=== PATIENT | female | born 1975 | race Caucasian/White ===

== ENCOUNTER → 2017-07-24 14:40 | Outpatient (CLI) | payer BC, SELFPAY ==
--- NOTE | 2017-07-24 14:47 | US_ITS ---
US breast RT complete COMPARISON: 02/23/2017 INDICATION: Follow-up abnormal mammogram and ultrasound ORDERING PHYSICIAN: Germain Holman MD PATIENT AGE: 42 years TECHNIQUE: Standard images performed along with axilla FINDINGS: A complex cyst is present at the 11:00 region measuring 5 x 3 mm.. At 10:00 there is a 5 mm cyst along the chest wall anteriorly. Small nodes are present in the axilla. An 8 x 3 mm hypoechoic area is noted at 9:00 unchanged. No suspicious lesions evident. IMPRESSION: Benign findings, no evidence of malignancy BI-RADS Category: 2 Benign Finding(s) RECOMMENDED FOLLOW-UP: 1YR - 1 YEAR FOLLOW-UP (A letter has been sent to the patient regarding results of the study.)
--- NOTE | 2017-07-24 14:47 | MM_ITS ---
. MM Dig screening mamm BI w/CAD CAD Screening ORDERING PHYSICIAN : Germain Holman MD PATIENT AGE: 41 years GENDER: Female COMPARISON: Previous mammograms: December 2014, June 2016, right mammogram July 2016. February 2017 INDICATION no hormones. No new complaints noncontributory family history: TECHNIQUE: Standard CC and MLO images were obtained. R2 CAD reviewed. FINDINGS: On mild asymmetry again observed with fibroglandular elements most pronounced towards upper-outer quadrant both right and left breast. These asymmetric inhomogeneous breast patterns appear fairly stable compared back to the previous studies from 2014 & in 2017. Self breast examination would be encouraged if any palpable areas should develop ultrasound may be useful to further evaluate such Several RIGHT BREAST:The fibroglandular elements are most evident towards upper outer quadrant right breast but appears stable with no significant new findings. LEFT BREAST: The area of dense glandular elements at the upper outer quadrant left breast appears similar to thousand 15 with no significant change or progression. IMPRESSION: No significant new areas of concern Stable bilateral mammogram.. Stable areas densefibroglandular tissue upper-outer quadrant both breast again noted. Overall appear Stable Bilateral follow-up one year adequate BI-RADS Category: 2 Benign Finding(s) RECOMMENDED FOLLOW-UP: 1YR - 1 YEAR FOLLOW-UP (A letter has been sent to the patient regarding results of the study.)
== END ==
PROVIDERS: Family Provider Family Medicine; PCP Nurse Practitioner Obstetrics & Gynecology; Visit Provider Nurse Practitioner Obstetrics & Gynecology
DX: Z12.31 Encounter for screening mammogram for malignant neoplasm of breast (principal); Z09 Encounter for follow-up examination after completed treatment for conditions other than malignant neoplasm
CPT/HCPCS: 76641; 77067

== ENCOUNTER 2024-01-07 07:00 | Outpatient (RCR) | payer BC, SELFPAY | END 2024-02-05 17:02 | disposition home or self-care (01) | LOC: PT 07:00 | PROVIDERS: Visit Provider Nurse Practitioner Family | DX: M50.10 Cervical disc disorder with radiculopathy, unspecified cervical region (principal) | CPT/HCPCS: 20560; 97012; 97110; 97140; 97163 ==